=== PATIENT | male | born 1975 | race Two or more races ===

== ENCOUNTER 2024-06-17 11:06 | Inpatient (IN) | payer MEDICAID, OTHER ==
[~2024-06-17] VITALS: Ht 177.8 cm; Wt 93.5 kg
--- NOTE | 2024-06-17 11:56 | ED.PDOC ---
GI ASSESSMENT HPI Comments 48 y.o male presents to the ED for a chief complaint of lower abdominal pain associated with nausea and vomiting that started last night. Patient reports pain is constant, rating a 5/10 on the pain scale and states there are no modifying factors. Patient reports history of colon issues, states he has been diagnosed with diverticulosis, IBS, and bowel obstructions. Patient also mentions intermittent episodes of rectal bleeding for years which he has not been evaluated for by a range conservationist due to not having a PCP " for years". Patient's spouse reports patient went to [facility] to get some intestinal/abdominal surgery due to IBS but never followed up afterwards here. No fever or chills reported. Chief Complaint: Abdominal Pain Time Seen by MD: 11:41 Primary Care Provider: GLADIS Reviewed Notes: Nurses Notes, Medications, Allergies Allergies: Coded Allergies: NO KNOWN ALLERGIES (Unverified , 06/17/24) Information Source: Patient, Spouse, Past Medical Record Mode of Arrival: Ambulatory Timing: Hours Duration: Since onset Quality: Aching Vomitus: Hard Stool: Blood Streaked, Loose Severity: Moderate Recent: None Recent Hx of: None Pain Location: Suprapubic Modifying Factors: Nothing Associated sign and symptoms: Nausea, Vomiting, Abdominal Pain, Blood in Stool Past Medical History Past Medical History (Other): IBS, bowel obstructions, colon issues, early set of diverticulosis Surgical History (Other): intestinal Family History Family History: Reviewed,noncontributory to illness Social History Smoker: Non-Smoker Alcohol: Denies ETOH Use Drugs: Denies Drug Use Lives In: Home Constitutional: denies: chills, diaphoresis, fatigue, fever, malaise, sweats, weakness, others EENTM: denies: blurred vision, double vision, ear bleeding, ear discharge, ear drainage, ear pain, ear ringing, eye pain, eye redness, hearing loss, mouth pain, mouth swelling, nasal discharge, nose bleeding, nose congestion, nose pain, photophobia, tearing, throat pain, throat swelling, voice changes, others Respiratory: denies: cough, hemoptysis, orthopnea, SOB at rest, shortness of breath, SOB with excertion, stridor, wheezing, others Cardiovascular: denies: chest pain, dizzy spells, diaphoresis, Dyspnea on exertion, edema, irregular heart beat, left arm pain, lightheadedness, palpitations, PND, syncope, others Gastrointestinal: reports: abdominal pain, nausea, rectal bleeding, vomiting; denies: abdomen distended, blood streaked bowels, constipated, diarrhea, dysphagia, difficulty swallowing, hematemesis, melena, poor appetite, poor fluid intake, rectal pain, others Genitourinary: denies: burning, dysuria, flank pain, frequency, hematuria, incontinence, penile discharge, penile sore, pain, testicle pain, testicle swelling, urgency, others Neurological: denies: dizziness, fainting, headache, left sided numbness, left sided weakness, numbness, paresthesia, pre-existing deficit, right sided numbness, right sided weakness, seizure, speech problems, tingling, tremors, weakness, others Musculoskeletal: denies: back pain, gout, joint pain, joint swelling, muscle pain, muscle stiffness, neck pain, others Integumetry: denies: bruises, change in color, change in hair/nails, dryness, laceration, lesions, lumps, rash, wounds, others Allergic/Immunocompromised: denies: Difficulty Healing, Frequent Infections, Hives, Itching, others Hematologic/Lymphatic: denies: anemia, blood clots, easy bleeding, easy bruising, swollen glands, others Endocrine: denies: excessive hunger, excessive sweating, excessive thirst, excessive urination, flushing, intolerance to cold, intolerance to heat, unexplained weight gain, unexplained weight loss, others Psychiatric: denies: anxiety, bipolar disorder, depression, hopeless, panic disorder, schizophrenia, sleepless, suicidal, others All Other Systems: Reviewed and Negative Physical Exam General Appearance: Moderate Distress HEENT: Normal ENT Inspection, Pharynx Normal, TMs Normal Neck: Full Range of Motion, Non-Tender, Normal, Normal Inspection Respiratory: Chest Non-Tender, Lungs Clear, No Accessory Muscle Use, No Respiratory Distress, Normal Breath Sounds Cardiovascular: No Edema, No JVD, No Murmur, No Gallop, Normal Peripheral Pulses, Regular Rate/Rhythm Breast Exam: Deferred Gastrointestinal: Diffuse, No Organomegaly, No Pulsatile Mass, Normal Bowel Sounds, Soft, Tenderness Genitalia: Deferred Pelvic: Deferred Rectal: Deferred Extremities: No calf tenderness, Normal capillary refill, Normal inspection, Normal range of motion, Non-tender, No pedal edema Musculoskeletal : Apperance: Normal Neurologic: Alert, doll wigs hackler II-XII nml as Tested, No Motor Deficits, Normal Affect, Normal Mood, No Sensory Deficits Cerebellar Function: Normal Reflexes: Normal Skin: Dry, Normal Color, Warm Lymphatic: No Adenopathy Was a procedure done? Was a procedure done?: No GI differential Dx Differential Diagnosis: Diverticular disease, Esophagitis, Gastritis/PUD, Ga stroenteritis, Inflammatory BD, Anemia, Esophageal Varicies X-Ray, Labs, Meds, VS Vital Signs Date Time Temp Pulse Resp B/P (MAP) Pulse Ox O2 Delivery O2 Flow Rate FiO2 06/17/24 12:54 85 16 98 Room Air* 0 21 06/17/24 12:51 85 16 126/76 06/17/24 12:50 85 16 126/76 (93) 98 06/17/24 11:25 98.4 82 18 121/80 (94) 97 Lab Test 06/17/24 12:41 06/17/24 11:23 Range/Units White Blood Count 11.3 H 4.4-10.8 10^3/uL Red Blood Count 5.39 4.5-5.90 10^6/uL Hemoglobin 15.6 13.5-17.5 g/dL Hematocrit 44.8 41.0-53.0 % Mean Corpuscular Volume 83.1 80.0-100.0 fL Mean Corpuscular Hemoglobin 28.9 28.0-32.0 pg Mean Corpuscular Hemoglobin Concent 34.8 32.0-36.0 g/dL Red Cell Distribution Width 13.1 11.8-14.3 % Platelet Count 308 140-450 10^3/uL Mean Platelet Volume 6.3 L 6.9-10.8 fL Neutrophils (%) (Auto) 88.4 H 37.0-80.0 % Lymphocytes (%) (Auto) 6.4 L 10.0-50.0 % Monocytes (%) (Auto) 4.7 0.0-12.0 % Eosinophils (%) (Auto) 0.2 0.0-7.0 % Basophils (%) (Auto) 0.3 0.0-2.0 % Neutrophils # (Auto) 10.0 H 1.6-8.6 10 ^3/uL Lymphocytes # (Auto) 0.7 0.4-5.4 10 ^3/uL Monocytes # (Auto) 0.5 0-1.3 10 ^3/uL Eosinophils # (Auto) 0 0-0.8 10 ^3/uL Basophils # (Auto) 0 0-0.2 10 ^3/uL Nucleated Red Blood Cells 0.0 % Sodium Level 139 136-145 mmol/L Potassium Level 4.0 3.5-5.1 mmol/L Chloride Level 104 98-107 mmol/L Carbon Dioxide Level 25 20-31 mmol/L Anion Gap 10 5-15 Blood Urea Nitrogen 15 9-23 mg/dL Creatinine 1.37 H 0.700-1.30 mg/dL Glomerular Filtration Rate Calc 63 >90 mL/min BUN/Creatinine Ratio 10.9 10.0-20.0 Serum Glucose 160 H 74-106 mg/dL Calcium Level 11.4 H 8.7-10.4 mg/dL Total Bilirubin 0.9 0.2-1.0 mg/dL Aspartate Amino Transferase (AST) 22 13-40 U/L Alanine Aminotransferase (ALT) 57 H 7-40 U/L Alkaline Phosphatase 128 H 46-116 U/L Total Protein 8.2 5.7-8.2 g/dL Albumin 4.9 H 3.2-4.8 g/dL Lipase 37 12-53 U/L Urine Color Yellow Yellow Urine Clarity Clear Clear Urine pH 7.5 5.0-9.0 Urine Specific [place] 1.023 1.001-1.035 Urine Protein Negative Negative Urine Ketones Negative Negative Urine Blood Negative Negative /uL Urine Nitrite Negative Negative Urine Bilirubin Negative Negative Urine Urobilinogen Normal Negative mg/dL Urine Leukocyte Esterase Negative Negative /uL Urine RBC 2 0 - 3 /hpf Urine WBC 3 0 - 3 /hpf Urine Squamous Epithelial Cells None seen <5 /hpf Urine Bacteria None seen None Seen /hpf Urine Glucose Normal Normal mg/dL Current Medications Medications (Trade) Dose Ordered Sig/Yi Route Start Time Stop Time Status Last Admin Ondansetron HCl (Zofran) 4 mg ONCE ONCE IV 06/17/24 12:00 06/17/24 12:01 GA 06/17/24 12:50 Morphine Sulfate 4 mg ONCE ONCE IV 06/17/24 12:00 06/17/24 12:01 DC 06/17/24 12:51 Pantoprazole Sodium (Protonix) 40 mg ONCE ONCE IV 06/17/24 12:00 06/17/24 12:01 DC 06/17/24 12:50 CT ABDOMEN AND PELVIS WITHOUT CONTRAST IMPRESSION: 1. There is no acute process in the abdomen and pelvis. The patient's CBC shows a slightly elevated white blood cell count of 11.3 The rest of the CBC is within normal limits except for creatinine of 1.37 The urine test is negative The patient was given Zofran 4 mg IV push. The patient was given Protonix 40 mg IV push The patient was given morphine 4 mg IV push The patient was still having a significant amount of pain. We are admitting the patient to the hospitalist with a diagnosis of abdominal pain unknown etiology Images Reviewed?: Images reviewed and evaluated by me Time of 1ST Reevaluation: 11:50 Reevaluation 1ST: Unchanged Patient Education/Counseling: Diagnosis, Treatment, Prognosis Family Education/Counseling: Diagnosis, Treatment, Prognosis Departure 1 Departure Time of Disposition: 16:04 Impression: Primary Impression: Intractable abdominal pain Additional Impression: Abdominal pain of unknown etiology Disposition: ADMITTED INPATIENT Admit to: Med Surg Condition: Fair Critical Care Note Critical Care Time?: No Stability Stability form required: Yes Unstable for transfer: ED Physician Assesment (Clinical assesment) I personally scribed for COMFORT RIDER MD ([email or web address]) on 06/17/24 at 11:56. Electronically submitted by Erica Oneal ([facility]). I personally scribed for COMFORT RIDER MD ([email or web address]) on 06/17/24 at 15:35. Electronically submitted by Erica Oneal ([facility] COMFORT RIDER MD Jun 17, 2024 11:56
[2024-06-17 12:21] LABS: Urine Bacteria None Seen /hpf (None Seen)
[2024-06-17] MEDS: ONDANSETRON HCL 4 MG/2 ML VIAL IV ONE (12:50)
[2024-06-17] MEDS: PANTOPRAZOLE 40 MG/10 ML VIAL INJ IV ONE (12:50)
[2024-06-17] MEDS: MORPHINE SULFATE 4 MG/ML SYR/VIAL IV ONE (12:51)
[2024-06-17 12:54] VITALS: PULSE 85; RESP 16; O2SAT 98
[2024-06-17 12:54] LABS: Urine Blood Negative /uL (Negative); Urine Clarity Clear (Clear); Urine Color Yellow (Yellow); Urine Protein, UAD Negative (Negative); Urine Specific Gravity 1.023 (1.001-1.035); Urine Urobilinogen Normal (Negative); Urine WBC 3 /hpf (0 - 3); Urine pH 7.5 (5.0-9.0)
[2024-06-17 13:22] LABS: Basophils # (auto) 0 10 ^3/uL (0-0.2); Basophils % (auto) 0.3 % (0.0-2.0); Eosinophils # (auto) 0 10 ^3/uL (0-0.8); Eosinophils % (auto) 0.2 % (0.0-7.0); Hematocrit 44.8 % (41.0-53.0); Hemoglobin 15.6 g/dL (13.5-17.5); Lymphocytes # (auto) 0.7 10 ^3/uL (0.4-5.4); Lymphocytes % (auto) 6.4 % (10.0-50.0); Mean Corpuscular Hemoglobin 28.9 pg (28.0-32.0); Mean Corpuscular Hgb Conc. 34.8 g/dL (32.0-36.0); Mean Corpuscular Volume 83.1 fL (80.0-100.0); Monocytes # (auto) 0.5 10 ^3/uL (0-1.3); Monocytes % (auto) 4.7 % (0.0-12.0); Neutrophils % (auto) 88.4 % (37.0-80.0); Platelet Count (auto) 308 10^3/uL (140-450); Red Blood Cells 5.39 10^6/uL (4.5-5.90); Red Cell Distribution Width 13.1 % (11.8-14.3); White Blood Cell 11.3 10^3/uL (4.4-10.8)
--- NOTE | 2024-06-17 13:28 | DVH ---
CT ABDOMEN AND PELVIS WITHOUT CONTRAST CLINICAL HISTORY: pain TECHNIQUE: Multiple contiguous axial images of the abdomen and pelvis without intravenous contrast. The images were reformatted degenerate coronal and sagittal reconstructions. All CT scans at this medical facility are performed using dose modulation techniques as appropriate t o a performed exam including the following:Automated exposure control was utilized; adjustment of the MA and/or KV according to patient size; and use of iterative reconstruction technique. Radiation Dose Information: CT Dose: CTDI volume is 15 mGy. Dose-length product is 964 mGy*cm Comparison: None FINDINGS: Evaluation of the abdomen and pelvis is limited without intravenous contrast. There are few scattered small hepatic cysts. The gallbladder, pancreas, kidneys, adrenal glands, a nd spleen appear within normal limits. There is no gross evidence of abdominal lymphadenopathy. There is no free fluid or free air. The stomach grossly appears unremarkable. The small and large bowel loops demonstrate normal caliber and appear within normal limits.. The abdominal aorta and IVC appear within normal limits. The bladder appears unremarkable for the degree of distention. The pelvic organ appears within normal limits. There is no gross evidence of a pelvic mass. There is no free fluid collection. Lung bases are clear. There is no acute osseous abnormality. IMPRESSION: 1. There is no acute process in the abdomen and pelvis. HS:Y
[2024-06-17 13:45] LABS: Anion Gap 10 (5-15); Aspartate Aminotransferase 22 U/L (13-40); BUN/Creatinine Ratio 10.9 (10.0-20.0); Blood Urea Nitrogen 15 mg/dL (9-23); Carbon Dioxide 25 mmol/L (20-31); Chloride 104 mmol/L (98-107); Sodium 139 mmol/L (136-145)
[2024-06-17 13:46] LABS: Bilirubin, Total 0.9 mg/dL (0.2-1.0)
[2024-06-17 13:51] LABS: Alanine Aminotransferase 57 U/L (7-40); Albumin 4.9 g/dL (3.2-4.8); Alkaline Phosphatase 128 U/L (46-116); Calcium 11.4 mg/dL (8.7-10.4); Glucose 160 mg/dL (74-106); Total Protein 8.2 g/dL (5.7-8.2)
[2024-06-17 14:24] LABS: Lipase 37 U/L (12-53)
[2024-06-17] MEDS ORDERED: ONDANSETRON HCL 4 MG/2 ML VIAL IV PRN (16:30)
[2024-06-17] MEDS ORDERED: ACETAMINOPHEN 325 MG TAB PO PRN (16:30)
[2024-06-17] MEDS ORDERED: MORPHINE SULFATE INJ 2 MG/ml SYRG IV PRN (16:30)
[2024-06-17] MEDS ORDERED: DEXTROSE (50%) 50ML SYRG IV PRN (16:45)
--- NOTE | 2024-06-17 16:47 | DVHHP2 ---
History of Present Illness Reason for Visit: abdominal pain History of Present Illness Abdi Harry is a 48-year-old male with past medical history of diverticulosis, IBS, and bowel obstruction who presents to the ED for abdominal pain, nausea, vomiting, blood with bowel movements x1 day. Patient reports his abdominal pain as a 5/10 constant and pressure-like in nature. Patient reports that he had tried to go to [facility] to get his colon reduced but they did not do any surgery there. He states that he is visiting for the holidays from [place]. Patient also reports that he was taking MiraLax for about 20 years but stopped 6 days ago. He also currently states that he does not have a primary care phys ician. Patient denies any fever, chills, back pain, chest pain, shortness of breath, lightheadedness, and dizziness. GI: Diverticulosis, Irritable bowel disease, Other (Bowel obstruction) Past Surgical History: None Family History: None Smoke: No ALCOHOL: none Drugs: None Lives: with Family Domestic Violence: Neg Review of Systems Constitutional: No: Fever, Chills, Sweats, Weakness, Malaise, Other Eyes: No: Pain, Vision change, Conjunctivae inflammation, Eyelid inflammation, Other, Redness ENT: No: Ear pain, Ear discharge, Nose pain, Nose discharge, Nose congestion, Mouth pain, Mouth swelling, Throat pain, Throat swelling, Other Respiratory: No: Cough, Dry, Shortness of breath, SOB with excertion, Wheezing, Hemoptysis, Pleuritic Pain, Sputum, Wheezing, Other Cardiovascular: No: Chest Pain, Palpitations, Orthopnea, Paroxysmal Noc. Dyspnea, Edema, Lt Headedness, Other Gastrointestinal: Nausea, Vomiting, Abdominal Pain, Hematochezia; No: Diarrhea, Constipation, Melena, Other Genitourinary: No Dysuria, No Frequency, No Incontinence, No Hematuria, No Retention, No Other Musculoskeletal: No: other, neck pain, shoulder pain, arm pain, back pain, hand pain, leg pain, foot pain Skin: No: Rash, Lesions, Jaundice, Bruising, Other Neurological: No: Weakness, Numbness, Incoordination, Change in speech, Confusion, Seizures, Other Allergies: Coded Allergies: NO KNOWN ALLERGIES (Unverified , 06/17/24) Exam Vital Signs Vital Signs Date Time Temp Pulse Resp B/P (MAP) Pulse Ox O2 Delivery O2 Flow Rate FiO2 06/17/24 12:54 85 16 98 Room Air* 0 21 06/17/24 12:51 126/76 06/17/24 11:25 98.4 General Appearance: Alert, Oriented X3, Cooperative, No acute distress HEENT: Atraumatic, PERRLA, EOMI, Mucous membr. moist/pink Respiratory: Clear to auscultation, Normal air movement Cardiovascular: Regular rate, Normal S1, Normal S2 Abdominal: No hepatospenomegaly, No masses Extremities: No clubbing, No cyanosis, No edema, Normal pulses, No tenderness/swelling Skin: No rashes, No breakdown, No significant lesion Neuro: Normal gait, Normal speech, Strength at 5/5 X4 ext, Normal tone, Sensation intact, Cranial nerves 3-12 NL Psych/Mental Status: Mental status NL, Mood NL Labs/Xrays Labs Test 06/17/24 12:41 06/17/24 11:23 Range/Units White Blood Count 11.3 H 4.4-10.8 10^3/uL Red Blood Count 5.39 4.5-5.90 10^6/uL Hemoglobin 15.6 13.5-17.5 g/dL Hematocrit 44.8 41.0-53.0 % Mean Corpuscular Volume 83.1 80.0-100.0 fL Mean Corpuscular Hemoglobin 28.9 28.0-32.0 pg Mean Corpuscular Hemoglobin Concent 34.8 32.0-36.0 g/dL Red Cell Distribution Width 13.1 11.8-14.3 % Platelet Count 308 140-450 10^3/uL Mean Platelet Volume 6.3 L 6.9-10.8 fL Neutrophils (%) (Auto) 88.4 H 37.0-80.0 % Lymphocytes (%) (Auto) 6.4 L 10.0-50.0 % Monocytes (%) (Auto) 4.7 0.0-12.0 % Eosinophils (%) (Auto) 0.2 0.0-7.0 % Basophils (%) (Auto) 0.3 0.0-2.0 % Neutrophils # (Auto) 10.0 H 1.6-8.6 10 ^3/uL Lymphocytes # (Auto) 0.7 0.4-5.4 10 ^3/uL Monocytes # (Auto) 0.5 0-1.3 10 ^3/uL Eosinophils # (Auto) 0 0-0.8 10 ^3/uL Basophils # (Auto) 0 0-0.2 10 ^3/uL Nucleated Red Blood Cells 0.0 % Sodium Level 139 136-145 mmol/L Potassium Level 4.0 3.5-5.1 mmol/L Chloride Level 104 98-107 mmol/L Carbon Dioxide Level 25 20-31 mmol/L Anion Gap 10 5-15 Blood Urea Nitrogen 15 9-23 mg/dL Creatinine 1.37 H 0.700-1.30 mg/dL Glomerular Filtration Rate Calc 63 >90 mL/min BUN/Creatinine Ratio 10.9 10.0-20.0 Serum Glucose 160 H 74-106 mg/dL Calcium Level 11.4 H 8.7-10.4 mg/dL Total Bilirubin 0.9 0.2-1.0 mg/dL Aspartate Amino Transferase (AST) 22 13-40 U/L Alanine Aminotransferase (ALT) 57 H 7-40 U/L Alkaline Phosphatase 128 H 46-116 U/L Total Protein 8.2 5.7-8.2 g/dL Albumin 4.9 H 3.2-4.8 g/dL Lipase 37 12-53 U/L Urine Color Yellow Yellow Urine Clarity Clear Clear Urine pH 7.5 5.0-9.0 Urine Specific [place] 1.023 1.001-1.035 Urine Protein Negative Negative Urine Ketones Negative Negative Urine Blood Negative Negative /uL Urine Nitrite Negative Negative Urine Bilirubin Negative Negative Urine Urobilinogen Normal Negative mg/dL Urine Leukocyte Esterase Negative Negative /uL Urine RBC 2 0 - 3 /hpf Urine WBC 3 0 - 3 /hpf Urine Squamous Epithelial Cells None seen <5 /hpf Urine Bacteria None seen None Seen /hpf Urine Glucose Normal Normal mg/dL CT ABDOMEN AND PELVIS WITHOUT CONTRAST CLINICAL HISTORY: pain TECHNIQUE: Multiple contiguous axial images of the abdomen and pelvis without intravenous contrast. The images were reformatted degenerate coronal and sagittal reconstructions. All CT scans at this medical facility are performed using dose modulation techniques as appropriate to a performed exam including the following:Automated exposure control was utilized; adjustment of the MA and/or KV according to patient size; and use of iterative reconstruction technique. Radiation Dose Information: CT Dose: CTDI volume is 15 mGy. Dose-length product is 964 mGy*cm Comparison: None FINDINGS: Evaluation of the abdomen and pelvis is limited without intravenous contrast. There are few scattered small hepatic cysts. The gallbladder, pancreas, kidneys, adrenal glands, and spleen appear within normal limits. There is no gross evidence of abdominal lymphadenopathy. There is no free fluid or free air. The stomach grossly appears unremarkable. The small and large bowel loops demonstrate normal caliber and appear within normal limits.. The abdominal aorta and IVC appear within normal limits. The bladder appears unremarkable for the degree of distention. The pelvic organ appears within normal limits. There is no gross evidence of a pelvic mass. There is no free fluid collection. Lung bases are clear. There is no acute osseous abnormality. IMPRESSION: 1. There is no acute process in the abdomen and pelvis. Assessment/Plan Assessment/Plan Assessment/Plan: Rule out GIB Intractable abdominal pain Hx of diverticulosis Hx of IBS STEVE on CKD Elevated ALT and ALP Hypercalcemia GI cx ct a/p noted labs pain management antiemetics ua lipase am labs ekg Hyperglycemia HgbA1C ISS and accuchecks FEN/PPX diet IVf protonix DVT ppx not indicated patient ambulating Admit to med surg Discussed plan of care with patient and nurse No home medications to reconcile Plan discussed with: Patient My Orders Orders - MELANIA JUNIOR Procedure Category Date Status Time * Gi Dvh Compensation Administrator CONS 06/17/24 Transmitted 16:18 Admit ADMIT 06/17/24 Transmitted 16:25 Allergies DONTA 06/17/24 Transmitted 16:25 Code Status CODE 06/17/24 Transmitted 16:25 0.9% Ns 1000 Ml PHA 06/17/24 Transmitted 16:30 Hydrocodone-Acet PHA 06/17/24 Transmitted 5/325mg Tab ([place] 16:30 Ondansetron Hcl PHA 06/17/24 Verified (Zofran) 16:30 Complete Blood Count LAB 06/18/24 Verified 04:00 Comprehensive LAB 06/18/24 Verified Metabolic Panel 04:00 Npo (Nothing By DIET 06/17/24 Verified Mouth) Diet Dinner Acetaminophen Tablet PHA 06/17/24 Verified (Tylenol Tablet) 16:30 Morphine Sulfate PHA 06/17/24 Verified Injection 16:30 Date of Service: Jun 17, 2024 Billing Provider: MELANIA JUNIOR Common Visit Codes: [id number] INP/OBS CARE (MOD) MELANIA JUNIOR Jun 17, 2024 16:47
[2024-06-17] MEDS: InsuLIN REG 1unit/0.01ml Soln (100units/ml) SC SCH (18:00)
[2024-06-17] MEDS: ACCU-CHEK COMFORT CURVE STRIP VI SCH (18:00)
[2024-06-17] MEDS: SODIUM CHLORIDE 0.9% 1,000 ML IV SCH (20:00)
[2024-06-17 22:32] VITALS: BP 140/90; PULSE 84; RESP 16; TEMP 97.9; O2SAT 97
[2024-06-17] MEDS: HYDROcodone-ACET 5/325MG TAB PO PRN (22:34)
[2024-06-18] VITALS (7 sets, daily range): BP systolic 105–140; BP diastolic 70–92; PULSE 69–112; RESP 18–20; TEMP 97.2–98.4; O2SAT 94–98
[2024-06-18 04:28] LABS: Basophils # (auto) 0 10 ^3/uL (0-0.2); Basophils % (auto) 0.3 % (0.0-2.0); Eosinophils # (auto) 0.1 10 ^3/uL (0-0.8); Eosinophils % (auto) 1.2 % (0.0-7.0); Hematocrit 39.3 % (41.0-53.0); Hemoglobin 13.7 g/dL (13.5-17.5); Lymphocytes # (auto) 2.1 10 ^3/uL (0.4-5.4); Lymphocytes % (auto) 22.1 % (10.0-50.0); Mean Corpuscular Hemoglobin 29.1 pg (28.0-32.0); Mean Corpuscular Hgb Conc. 34.8 g/dL (32.0-36.0); Mean Corpuscular Volume 83.6 fL (80.0-100.0); Monocytes # (auto) 0.7 10 ^3/uL (0-1.3); Monocytes % (auto) 7.3 % (0.0-12.0); Neutrophils # (auto) 6.6 10 ^3/uL (1.6-8.6); Neutrophils % (auto) 69.1 % (37.0-80.0); Platelet Count (auto) 247 10^3/uL (140-450); Red Cell Distribution Width 13.1 % (11.8-14.3); White Blood Cell 9.6 10^3/uL (4.4-10.8)
[2024-06-18 04:49] LABS: Albumin 3.9 g/dL (3.2-4.8); Alkaline Phosphatase 99 U/L (46-116); Anion Gap 8 (5-15); Aspartate Aminotransferase 20 U/L (13-40); BUN/Creatinine Ratio 10.6 (10.0-20.0); Blood Urea Nitrogen 12 mg/dL (9-23); Carbon Dioxide 25 mmol/L (20-31); Glucose 104 mg/dL (74-106); Potassium 3.6 mmol/L (3.5-5.1); Sodium 141 mmol/L (136-145)
[2024-06-18 04:50] LABS: Bilirubin, Total 0.9 mg/dL (0.2-1.0); Total Protein 6.4 g/dL (5.7-8.2)
[2024-06-18 04:55] LABS: Alanine Aminotransferase 45 U/L (7-40); Chloride 108 mmol/L (98-107)
[2024-06-18] MEDS: PANTOPRAZOLE 40 MG/10 ML VIAL INJ IV SCH (08:56)
--- NOTE | 2024-06-18 13:18 | DVHINCON2 ---
GI Consult Consult Note GI consult note Date of Consultation: 06/18/2024 Chief Complaint: Rule out GI bleed Referring Physician: VERNON STALEY H&P: 48-year-old male admitted with lower abdominal pain, which radiates into his left hip, for two days. Per patient's symptoms usually persist for few months.Patient has similar episodes multiple times in the past Patient has nausea and vomiting, . Two days ago. No nausea or vomiting at this time. No hematemesis Patient is started with red blood rectally two days ago, last episode this a.m. Patient has history of constipation, self treat with MiraLax every day, but had stopped six days ago Patient has had multiple colonoscopies in the past. Last colonoscopy July 04 in [facility], diagnosed with redundant colon, diverticulosis Patient was recommended for surgery possible partial colectomy, but was not able to get surgery done due to insurance issues Past Medical History: Diverticulosis, IBS, bowel obstruction Past Surgical History: None Social History: NO smoking, drinking ETOH and use of illegal drugs. Family History: Noncontributory Review of Systems: Constitutional: no fever, chill, weight loss HEENT: no eye pain, no hearing loss, no oral lesion, no scleral icterus Heart: no chest pain, no chest pressure Lung: no cough, no dyspnea with exertion Abdomen: see HPI Physical exam: General: NAD, AAOX3 Chest: lung devine clear to auscultation Heart: RRR, no murmur Abdomen: non-distended, mild lower abdominal tenderness to palpation, +BS Labs: Labs Test 06/18/24 11:42 06/18/24 03:27 06/17/24 12:41 06/17/24 11:23 Range/Units POC Glucose 114 H 70-106 mg/dl White Blood Count 9.6 4.4-10.8 10^3/uL Red Blood Count 4.70 4.5-5.90 10^6/uL Hemoglobin 13.7 13.5-17.5 g/dL Hematocrit 39.3 #L 41.0-53.0 % Mean Corpuscular Volume 83.6 80.0-100.0 fL Mean Corpuscular Hemoglobin 29.1 28.0-32.0 pg Mean Corpuscular Hemoglobin Concent 34.8 32.0-36.0 g/dL Red Cell Distribution Width 13.1 11.8-14.3 % Platelet Count 247 140-450 10^3/uL Mean Platelet Volume 6.2 L 6.9-10.8 fL Neutrophils (%) (Auto) 69.1 37.0-80.0 % Lymphocytes (%) (Auto) 22.1 10.0-50.0 % Monocytes (%) (Auto) 7.3 0.0-12.0 % Eosinophils (%) (Auto) 1.2 0.0-7.0 % Basophils (%) (Auto) 0.3 0.0-2.0 % Neutrophils # (Auto) 6.6 1.6-8.6 10 ^3/uL Lymphocytes # (Auto) 2.1 0.4-5.4 10 ^3/uL Monocytes # (Auto) 0.7 0-1.3 10 ^3/uL Eosinophils # (Auto) 0.1 0-0.8 10 ^3/uL Basophils # (Auto) 0 0-0.2 10 ^3/uL Nucleated Red Blood Cells 0.0 % Sodium Level 141 136-145 mmol/L Potassium Level 3.6 3.5-5.1 mmol/L Chloride Level 108 H 98-107 mmol/L Carbon Dioxide Level 25 20-31 mmol/L Anion Gap 8 5-15 Blood Urea Nitrogen 12 9-23 mg/dL Creatinine 1.13 0.700-1.30 mg/dL Glomerular Filtration Rate Calc 80 >90 mL/min BUN/Creatinine Ratio 10.6 10.0-20.0 Serum Glucose 104 74-106 mg/dL Calcium Level 9.0 8.7-10.4 mg/dL Total Bilirubin 0.9 0.2-1.0 mg/dL Aspartate Amino Transferase (AST) 20 13-40 U/L Alanine Aminotransferase (ALT) 45 H 7-40 U/L Alkaline Phosphatase 99 46-116 U/L Total Protein 6.4 5.7-8.2 g/dL Albumin 3.9 3.2-4.8 g/dL Hemoglobin A1c 5.9 H <5.7 % A1C Lipase 37 12-53 U/L Urine Color Yellow Yellow Urine Clarity Clear Clear Urine pH 7.5 5.0-9.0 Urine Specific [place] 1.023 1.001-1.035 Urine Protein Negative Negative Urine Ketones Negative Negative Urine Blood Negative Negative /uL Urine Nitrite Negative Negative Urine Bilirubin Negative Negative Urine Urobilinogen Normal Negative mg/dL Urine Leukocyte Esterase Negative Negative /uL Urine RBC 2 0 - 3 /hpf Urine WBC 3 0 - 3 /hpf Urine Squamous Epithelial Cells None seen <5 /hpf Urine Bacteria None seen None Seen /hpf Urine Glucose Normal Normal mg/dL Imaging: CT abdomen pelvis IMPRESSION: 1. There is no acute process in the abdomen and pelvis. Assessment: Intractable abdominal pain History of diverticulosis Rule out GI bleed History of IBS Plan: Discussed with Dr. Mich Dietz and Protonix Monitor labs Clear liquid diet advance as tolerated Recommend outpatient surgical referral for possible partial colectomy Outpatient GI follow-up with next available appointment for possible colonoscopy if needed Thank you for this consult Date of Service: Jun 18, 2024 Billing Provider: CHON MCNULTY Common Visit Codes: CONSULT ONLY Consultation Codes: [id number] CONSULT <45MIN CHON MCNULTY Jun 18, 2024 13:18
[2024-06-18] MEDS ORDERED: SODIUM CHLORIDE 0.9% 1,000 ML IV SCH (13:30)
[2024-06-18] MEDS: PANTOPRAZOLE 40 MG TAB PO ONE (14:56)
--- NOTE | 2024-06-18 18:58 | DVHPNRES ---
Progress Note Date Seen: Jun 18, 2024 Resident Creating Document: LEIGH ANN TSAI RESIDENT Medical Necessity Reason Pt with a Central, PICC or Fol: No Subjective Review of Systems 48 year old male patient with PMH of diverticulosis, IBS, and bowel obstruction presented with complaints of lower abd pain, radiation to left Upper quadrant, associated with constipation, and rectal bleeding for last 1 day. Patient mentioned that he started having 4-5 episodes of rectal bleeding that made him come to the ER. He mentioned no passing of gas and stools for last one day, mentions that its due to "kinking of the colon". He also mentioned associated nausea and vomiting 4-5 episodes without any blood in the vomitus, and chronic acid reflux. Pt seen and examined in the [facility] with limited physical examination. ROS Constitutional: No: Fever, Chills, Sweats, Weakness, Malaise, Other Eyes: No: Pain, Vision change, Conjunctivae inflammation, Eyelid inflammation, Other, Redness ENT: No: Ear pain, Ear discharge, Nose pain, Nose discharge, Nose congestion, Mouth pain, Mouth swelling, Throat pain, Throat swelling, Other Respiratory: No: Cough, Dry, Shortness of breath, SOB with excertion, Wheezing, Hemoptysis, Pleuritic Pain, Sputum, Wheezing, Other Cardiovascular: No: Chest Pain, Palpitations, Orthopnea, Paroxysmal Noc. Dyspnea, Edema, Lt Headedness, Other Gastrointestinal: Nausea, Vomiting, Abdominal Pain, Constipation, Hematochezia, No : melena, hematemesis Musculoskeletal: No: other, neck pain, shoulder pain, arm pain, back pain, hand pain, leg pain, foot pain Neurological:; No: Weakness, Numbness, Incoordination, Change in speech, Confusion, Seizures Objective vital signs Vital Sign Date Time Temp Pulse Resp B/P (MAP) Pulse Ox O2 Delivery O2 Flow Rate FiO2 06/18/24 17:00 98.4 95 18 120/82 (95) 95 98.4 06/18/24 08:00 Room Air* 0 21 Total Intake and Output 06/17/24 06/17/24 06/18/24 15:00 23:00 07:00 Intake Total 1000 ml Balance 1000 ml medications Current Medications Medications Dose Ordered Sig/Yi Route Start Time Stop Time Status Last Admin Dose Admin Ondansetron HCl 4 mg Q4HP PRN IV 12/16/24 16:30 Acetaminophen 650 mg Q6HP PRN PO 06/17/24 16:30 Pantoprazole Sodium 40 mg DAILY@0600 PO 06/19/24 06:00 Examination Examination General Appearance: Alert, Oriented X3, Cooperative, No acute distress HEENT: EOMI Respiratory: Clear to auscultation, Normal air movement Cardiovascular: Regular rate, Normal S1, Normal S2 Abdominal: Normal bowel sounds, no tenderness, no guarding, no rigidity Extremities: No cyanosis, No edema, Normal pulses, No tenderness/swelling Skin: No rashes, No breakdown Neuro: Normal speech and tone laboratory and microbiology Laboratory Tests 06/18/24 03:27 Test 06/18/24 03:27 Range/Units Serum Glucose 104 74-106 mg/dL Labs and/or images reviewed: Labs reviewed by me, Image(s) reviewed by me Problem List/Assessment/Plan Problem List/Assessment/Plan Assessment/Plan #Intractable abd pain -pain medications -CT abd/pelvis # Rectal bleeding, likely lower GI bleed ? External hemorrhoids ? Diverticular bleed, other causes not ruled out -IV Protonix, switched to oral Protonix -CT abd/pelvis revealed There is no acute process in the abdomen and pelvis -GI consulted -FOB # History of diverticulosis -CT abd/pelvis revealed There is no acute process in the abdomen and pelvis -GI consulted #IBS -monitor Code status discussed with the patient for >21 min: FULL CODE Case discussion with Dr Fairchild Plan discussed with: Other My Orders My Orders Orders - LEIGH ANN TSAI RESIDENT Procedure Category Date Status Time Pantoprazole Tablet PHA 06/19/24 In Process (Protonix Tablet) 06:00 Date of Service: Jun 18, 2024 Billing Provider: LOUIE FAIRCHILD MD Common Visit Codes: [id number] INP/OBS CARE(HIGH) Coding Comment Comment Attending Attestation I saw and evaluated the patient. I reviewed the residents note and agree with findings and plan as documented in the residents note except as documented below. GI bleed, likely lower, chronic IBS diverticulosis trend H/H orthostatic GI consult colateral from [facility] fobt iv bolus bowel reg advance diet pain management LEIGH ANN TSAI RESIDENT Jun 18, 2024 18:58 LOUIE FAIRCHILD MD Jun 18, 2024 21:58
[2024-06-19] VITALS (7 sets, daily range): BP systolic 116–147; BP diastolic 66–90; PULSE 74–88; RESP 16–20; TEMP 97.8–98.6; O2SAT 96–97
[2024-06-19] MEDS: PANTOPRAZOLE 40 MG TAB PO SCH (05:59)
[2024-06-19 11:26] LABS: Basophils # (auto) 0 10 ^3/uL (0-0.2); Basophils % (auto) 0.6 % (0.0-2.0); Eosinophils # (auto) 0.1 10 ^3/uL (0-0.8); Eosinophils % (auto) 1.5 % (0.0-7.0); Hematocrit 45.1 % (41.0-53.0); Hemoglobin 15.3 g/dL (13.5-17.5); Lymphocytes # (auto) 1.8 10 ^3/uL (0.4-5.4); Lymphocytes % (auto) 26.3 % (10.0-50.0); Mean Corpuscular Hemoglobin 28.5 pg (28.0-32.0); Mean Corpuscular Volume 83.8 fL (80.0-100.0); Monocytes # (auto) 0.5 10 ^3/uL (0-1.3); Monocytes % (auto) 6.5 % (0.0-12.0); Neutrophils # (auto) 4.6 10 ^3/uL (1.6-8.6); Neutrophils % (auto) 65.1 % (37.0-80.0); Platelet Count (auto) 275 10^3/uL (140-450); Red Blood Cells 5.39 10^6/uL (4.5-5.90); Red Cell Distribution Width 13.1 % (11.8-14.3)
--- NOTE | 2024-06-19 15:12 | DVHPN2 ---
Progress Note - Dictate Date Seen: Jun 19, 2024 Medical Necessity Reason Pt with a Central, PICC or Fol: No Subjective Patient resting comfortably Patient has not had a bowel movement yet There was no further rectal bleeding Patient has had multiple colonoscopies in the past vital signs Vital Sign Date Time Temp Pulse Resp B/P (MAP) Pulse Ox O2 Delivery O2 Flow Rate FiO2 06/19/24 13:06 98.1 76 18 147/74 (98) 97 98.1 06/19/24 08:00 Room Air* 0 21 Total Intake and Output 06/18/24 06/18/24 06/19/24 15:00 23:00 07:00 Intake Total 300 ml Balance 300 ml medications Current Medications Medications Dose Ordered Sig/Yi Route Start Time Stop Time Status Last Admin Dose Admin Ondansetron HCl 4 mg Q4HP PRN IV 06/17/24 16:30 Acetaminophen 650 mg Q6HP PRN PO 06/17/24 16:30 Pantoprazole Sodium 40 mg DAILY@0600 PO 06/19/24 06:00 06/19/24 05:59 40 MG objective General: NAD, AAOX3 Chest: lung devine clear to auscultation Heart: RRR, no murmur Abdomen: non-distended, mild lower abdominal tenderness to palpation, +BS laboratory and microbiology Laboratory Tests 06/19/24 11:06 06/18/24 03:27 Test 06/18/24 03:27 Range/Units Serum Glucose 104 74-106 mg/dL Problems(with codes): (1) Irritable bowel syndrome (2) Constipation (3) Diverticular disease (4) Abdominal pain of unknown etiology Prognosis Plan Advance as tolerated Recommend outpatient surgical referral for possible partial colectomy for redundancy of colon Outpatient GI follow-up with next available appointment for possible colonoscopy if needed Thank you for this consult Plan discussed with: Other (Dr. Ford and Hattie Baird) ED GROSSMAN MD Jun 19, 2024 15:12
[2024-06-19] MEDS ORDERED: PANT40T PO (17:00)
--- NOTE | 2024-06-19 18:23 | DVHDSRES ---
Discharge Summary Date of Admission Resident Creating Document: LEIGH ANN TSAI Jun 17, 2024 at 16:47 Date of Discharge: Jun 19, 2024 Labs/Diagnostic Data: Laboratory Results Test 06/19/24 11:06 06/18/24 11:42 06/18/24 03:27 06/17/24 12:41 White Blood Count 7.0 10^3/uL (4.4-10.8) Red Blood Count 5.39 10^6/uL (4.5-5.90) Hemoglobin 15.3 g/dL (13.5-17.5) Hematocrit 45.1 % (41.0-53.0) Mean Corpuscular Volume 83.8 fL (80.0-100.0) Mean Corpuscular Hemoglobin 28.5 pg (28.0-32.0) Mean Corpuscular Hemoglobin Concent 34.0 g/dL (32.0-36.0) Red Cell Distribution Width 13.1 % (11.8-14.3) Platelet Count 275 10^3/uL (140-450) Mean Platelet Volume 6.0 fL (6.9-10.8) Neutrophils (%) (Auto) 65.1 % (37.0-80.0) Lymphocytes (%) (Auto) 26.3 % (10.0-50.0) Monocytes (%) (Auto) 6.5 % (0.0-12.0) Eosinophils (%) (Auto) 1.5 % (0.0-7.0) Basophils (%) (Auto) 0.6 % (0.0-2.0) Neutrophils # (Auto) 4.6 10 ^3/uL (1.6-8.6) Lymphocytes # (Auto) 1.8 10 ^3/uL (0.4-5.4) Monocytes # (Auto) 0.5 10 ^3/uL (0-1.3) Eosinophils # (Auto) 0.1 10 ^3/uL (0-0.8) Basophils # (Auto) 0 10 ^3/uL (0-0.2) Nucleated Red Blood Cells 0.0 % POC Glucose 114 mg/dl (70-106) Sodium Level 141 mmol/L (136-145) Potassium Level 3.6 mmol/L (3.5-5.1) Chloride Level 108 mmol/L (98-107) Carbon Dioxide Level 25 mmol/L (20-31) Anion Gap 8 (5-15) Blood Urea Nitrogen 12 mg/dL (9-23) Creatinine 1.13 mg/dL (0.700-1.30) Glomerular Filtration Rate Calc 80 mL/min (>90) BUN/Creatinine Ratio 10.6 (10.0-20.0) Serum Glucose 104 mg/dL (74-106) Calcium Level 9.0 mg/dL (8.7-10.4) Total Bilirubin 0.9 mg/dL (0.2-1.0) Aspartate Amino Transferase (AST) 20 U/L (13-40) Alanine Aminotransferase (ALT) 45 U/L (7-40) Alkaline Phosphatase 99 U/L (46-116) Total Protein 6.4 g/dL (5.7-8.2) Albumin 3.9 g/dL (3.2-4.8) Hemoglobin A1c 5.9 % A1C (<5.7) Lipase 37 U/L (12-53) Test 06/17/24 11:23 Urine Color Yellow (Yellow) Urine Clarity Clear (Clear) Urine pH 7.5 (5.0-9.0) Urine Specific [place] 1.023 (1.001-1.035) Urine Protein Negative (Negative) Urine Ketones Negative (Negative) Urine Blood Negative /uL (Negative) Urine Nitrite Negative (Negative) Urine Bilirubin Negative (Negative) Urine Urobilinogen Normal mg/dL (Negative) Urine Leukocyte Esterase Negative /uL (Negative) Urine RBC 2 /hpf (0 - 3) Urine WBC 3 /hpf (0 - 3) Urine Squamous Epithelial Cells None seen /hpf (<5) Urine Bacteria None seen /hpf (None Seen) Urine Glucose Normal mg/dL (Normal) Other Laboratory Tests 06/19/24 11:06 06/18/24 03:27 Brief Hx & Hospital Course: 48 year old male patient with PMH of diverticulosis, IBS, and bowel obstruction presented with complaints of lower abd pain, radiation to left Upper quadrant, associated with constipation, and rectal bleeding for last 1 day. Patient mentioned that he started having 4-5 episodes of rectal bleeding that made him come to the ER. He mentioned no passing of gas and stools for last one day, mentions that its due to "kinking of the colon". He also mentioned associated nausea and vomiting 4-5 episodes without any blood in the vomitus, and chronic acid reflux. Patient's Was started on pain medications, IV Protonix which was later switched to oral Protonix. CT abdomen pelvis revealed there is no acute process in the abdomen and pelvis. GI was consulted. GI recommended outpatient surgical referral for possible partial colectomy for redundancy of colon. And also recommended outpatient GI follow up for next available appointment for possible colonoscopy if needed. Later in the hospital patient mentioned no rectal bleeding. At the time of discharge, patient had stable vitals, no new complaints. Discharge plan was discussed with the patient patient was advised to follow up with PCP/DC clinic within one week and GI/surgeon within 1-2 weeks. Patient was discharged on oral Protonix 40 mg daily. Examination General Appearance: Alert, Oriented X3, Cooperative, No acute distress HEENT: EOMI Respiratory: Clear to auscultation, Normal air movement Cardiovascular: Regular rate, Normal S1, Normal S2 Abdominal: Soft, nontender, no guarding, no rigidity Extremities: No cyanosis, No edema, Normal pulses, No tenderness/swelling Skin: No rashes, No breakdown Neuro: Normal speech and tone Condition at Discharge: Stable Final Diagnosis/Problems List rectal bleeding constipation Irritable bowel syndrome Diverticular disease acid reflux Discharge Disposition: Home Discharge Instruct/Medications Diet: Regular Diet comment: Regular diet. Activity: No Restrictions, As Tolerated Activity comment: No restrictions. Activity as tolerated. Follow Up/Referral: f/u with DC clinic within 1 week Medications: pantoprazole Discharge Statement: "Patient was advised to return to the ER or call 911 if any headaches, dizziness, shortness of breath, chest pain, abdominal pain, bleeding, fevers, or worsening of medical condition. Patient was counseled about treatment plan, medications, possible side effects, patientverbalized understanding. All questions were answered to the best of my ability. This discharge took greater then 30 minutes in planning, reviewing documentation, counseling the patient, and discussing with other team members." ASSESSMENT ASSESSMENT Assessment rectal bleeding constipation acid reflux Date of Service: Jun 19, 2024 Billing Provider: LOUIE FAIRCHILD MD Common Visit Codes: 39556-AIA/OBS DISCH DAY >30min Coding Comment Comment Attending Attestation I saw and evaluated the patient. I reviewed the residents note and agree with findings and plan as documented in the residents note except as documented below. LEIGH ANN TSAI RESIDENT Jun 19, 2024 18:23 LOUIE FAIRCHILD MD Jun 20, 2024 08:21
== END 2024-06-19 17:58 | disposition home or self-care (01) | DRG 244 ==
LOC: ER 11:06 → OVERFLOW 16:47 → EAST 06-18 20:55
PROVIDERS: ADMIT Student in an Organized Health Care Education/Training Program; ATTEND Student in an Organized Health Care Education/Training Program
DX: K57.31 Diverticulosis of large intestine without perforation or abscess with bleeding (principal); N17.0 Acute kidney failure with tubular necrosis; E83.52 Hypercalcemia; N18.9 Chronic kidney disease, unspecified; R74.01 Elevation of levels of liver transaminase levels; K58.9 Irritable bowel syndrome, unspecified; K59.00 Constipation, unspecified; K21.9 Gastro-esophageal reflux disease without esophagitis
CPT/HCPCS: 36415; 74176; 80053; 81001; 82962; 83036; 83690; 85025; G0378; J2405; J2470